=== PATIENT | female | born 1990 | race African-American/Black ===

== ENCOUNTER 2016-07-23 00:54 | Emergency (ER) | payer SELFPAY ==
--- NOTE | ~2016-07-23 | EKG ---
PATIENT: OLIVER CLEANING UNIT #: [id number] Ventricular Rate: 90 BPM Atrial Rate: 90 BPM P-R Interval: 150 ms QRS Duration: 80 ms Q-T Interval: 338 ms QTC Calculation(Bezet): 413 ms P Leary: 38 degrees Calculated R Leary: 67 degrees Calculated T Leary: 41 degrees Diagnosis Line: Normal sinus rhythm Diagnosis Line: Normal ECG Diagnosis Line: No previous ECGs available Diagnosis Line: Confirmed by TROY RUIZ MD ([id number]) on 07/29/2016 Diagnosis Line: 7:58:46 PM INTERPRETING MD: SARA CARR
--- NOTE | ~2016-07-23 | CT16 ---
[facility] A Service of [facility] RADIOLOGY TEXT RESULTS PATIENT: OLIVER CLEANING LOCATION: SED : 89 UNIT #: [id number] AGE: [address]: Isaac Osei DO SEX: F ORDER DR: [id number] [place] [id number] E MR#: [id number] Acc #: [id number] NAME: OLIVER CLEANING : 1990 SEX: F STUDY DATE/TIME: 07/23/2016 3:07 UNIT: SED ROOM: STUDY DESCRIPTION: CT Angio Chest for PE Attending Physician: Isaac Osei D.O. Ordering Physician: Isaac Osei D.O. Primary Care Physician: Primary Care Physician No MEDICAL IMAGING REPORT This report is preliminary unless electronic signature is present. EXAM CTA chest PE protocol. INDICATION Chest pain and tightness tonight. PROCEDURE Contrast-enhanced CTA of the chest and show opacification pulmonary arteries. Coronal 3-D MIP sagittal reformatted images reconstructed and submitted. 80 mL of Isovue-370. This CT exam was performed with one or more of the following radiation dose reduction techniques: automatic exposure control, adjustment of mA and/or kV according to patient size, and iterative reconstruction. COMPARISON None. FINDINGS No evidence for pulmonary embolus or aortic injury. No acute findings the included upper abdomen. Lungs are clear. No aggressive-appearing bone lesion. IMPRESSION No acute findings in the chest. No evidence for pulmonary embolus Dictated by... Zaid Jessica M.D. THIS IS AN ELECTRONICALLY VERIFIED REPORT [facility] A Service of [facility] RADIOLOGY TEXT RESULTS PATIENT: OLIVER CLEANING LOCATION: SED : 88 UNIT #: [id number] AGE: [address]: Isaac Osei DO SEX: F ORDER DR: Zaid Jessica M.D. at 07/27/2016 7:30 AM EED/ljbeth TD: 07/23/2016 05:12 JOB #: [id number] MEDICAL IMAGING REPORT Page 1 of 1
[~2016-07-23 00:54] MED LIST: BIRTH CONTROL PILL
[2016-07-23 01:16] LABS: BASOPHIL# 0.1 X10e3 (0-0.3); BASOPHIL% 1.1 % (0-2.5); EOSINOPHIL# 0.2 X10e3 (0-0.7); HEMATOCRIT 40.9 % (35.0-45.0); HEMOGLOBIN 13.8 gm/dL (12.0-16.0); LYMPHOCYTE# 2.2 X10e3 (1.0-3.5); LYMPHOCYTE% 26.1 % (17.0-45.0); MEAN CELL VOLUME 89.6 FL (83-96); MEAN CORPUSCULAR HEMOGLOBIN 30.2 PG (28-34); MEAN CORPUSCULAR HGB CONC 33.7 g/dL (30-36); MONOCYTE# 0.5 X10e3 (0-1.0); MONOCYTE% 5.5 % (3.0-12.0); NEUTROPHIL# 5.4 X10e3 (1.5-7.1); NEUTROPHIL% 65.3 % (40-75); PLATELET COUNT 259 X10e3 (140-420); RED BLOOD COUNT 4.57 X10e (3.90-5.30); RED CELL DISTRIBUTION WIDTH 13.6 % (11.0-15.5); WHITE BLOOD COUNT 8.3 X10e3 (4.0-10.5)
[2016-07-23 01:17] LABS: DIFF IND NO
[2016-07-23 01:21] LABS: INFLUENZA A NEG (NEG); INFLUENZA B NEG (NEG)
[2016-07-23 01:33] LABS: BUN/CREATININE RATIO 12.5; CALCIUM SERUM 9.5 mg/dL (8.4-10.2); CREATININE SERUM 0.8 mg/dL (0.6-1.4); POTASSIUM 3.5 mmol/L (3.5-5.1)
[2016-07-23 02:56] LABS: POC - CKMB <1.0 ng/mL (0.0-7.9); POC - MYOGLOBIN 33.3 ng/mL (0.0-169.0)
[2016-07-23 02:57] LABS: POC - TROPONIN <0.05 ng/mL (<=0.05)
[2016-07-24 17:13] LABS: POC - CKMB <1.0 ng/mL (0.0-7.9); POC - MYOGLOBIN 38.7 ng/mL (0.0-169.0); POC - TROPONIN <0.05 ng/mL (<=0.05)
== END 2016-07-23 04:09 | disposition home or self-care (01) ==
LOC: SED 00:54
PROVIDERS: Emergency Medicine; Nurse Practitioner Family
DX: R07.89 Other chest pain (principal); F41.9 Anxiety disorder, unspecified; F17.210 Nicotine dependence, cigarettes, uncomplicated; Z88.1 Allergy status to other antibiotic agents
CPT/HCPCS: 36415; 71275; 80048; 82553; 83874; 84443; 84484; 84703; 85025; 85379; 87651; 87804; 93005; 96360; 99284; Q9967